=== PATIENT | male | born 1945 | race Two or more races ===

== ENCOUNTER 2018-07-10 18:41 | Emergency (ER) | payer OTHER, BC ==
[2018-07-10] MEDS: DILTIAZEM 25 MG INJ IV (19:16)
[2018-07-10 19:19] LABS: ADD MAN DIFF? NO
[2018-07-10 19:22] LABS: BASOPHILS % 0.3 % (0.0-2.0); EOSINOPHILS % 0.2 % (0.0-7.0); HEMATOCRIT 47.5 % (42.0-52.0); HEMOGLOBIN 15.5 g/dl (14.0-18.0); LYMPHOCYTES # 0.8 10^3/ul (0.8-2.9); LYMPHOCYTES % 8.7 % (15.0-51.0); MEAN CORPUSCULAR HGB CONC 32.6 g/dl (32.0-37.0); MEAN CORPUSCULAR VOLUME 85.7 fl (82.0-101.0); MEAN PLATELET VOLUME 10.5 fl (7.4-10.4); MONOCYTE # 0.9 10^3/ul (0.3-0.9); NEUTROPHIL # 7.5 10^3/ul (1.6-7.5); NEUTROPHILS % 80.4 % (39.0-77.0); PLATELET COUNT 169 10^3/UL (140-415); RED BLOOD COUNT 5.54 10^6/ul (4.70-6.10); RED CELL DISTRIBUTION WIDTH 13.8 % (11.5-14.5)
[2018-07-10 19:22] LABS: WHITE BLOOD COUNT 9.4 10^3/ul (4.8-10.8)
[2018-07-10] MEDS: FUROSEMIDE 40 MG INJ IV (19:29)
[2018-07-10] MEDS: MAGNESIUM SULFATE 2 GM/50 ML 50 ML IVPB (19:36)
[2018-07-10 19:39] LABS: INR 1.52; PROTIME 18.4 Sec (11.9-14.9); PT RATIO 1.4
[2018-07-10 19:41] LABS: PARTIAL THROMBOPLASTIN TIME 58.6 Sec (23.0-35.0)
[2018-07-10 19:42] LABS: ALBUMIN 4.6 g/dl (3.3-4.9); ALBUMIN/GLOBULIN RATIO 1.21; ALKALINE PHOSPHATASE 82 IU/L (42-121); ANION GAP 18 (5-13); ASPARTATE AMINO TRANSFERASE 27 IU/L (15-46); BILIRUBIN,INDIRECT 2.3 mg/dl (0-1.1); BILIRUBIN,TOTAL 2.3 mg/dl (0.2-1.3); BLOOD UREA NITROGEN 14 mg/dl (7-20); CALCIUM 9.8 mg/dl (8.4-10.2); CARBON DIOXIDE 24 mmol/L (21-31); CHLORIDE 97 mmol/L (97-110); CREATININE 0.91 mg/dl (0.61-1.24); GLUCOSE 123 mg/dl (70-220); POTASSIUM 3.5 mmol/L (3.5-5.1); SODIUM 139 mmol/L (135-144); TOTAL PROTEIN 8.4 g/dl (6.1-8.1)
[2018-07-10 19:44] LABS: ALANINE AMINOTRANSFERASE < 6 IU/L (13-69)
[2018-07-10 19:54] LABS: B-TYPE NATRIURETIC PEPTIDE 3440 PG/ML (0-125); TROPONIN-I < 0.012 ng/ml (0.000-0.120)
[2018-07-10 21:24] LABS: DIGOXIN < 0.4 ng/ml (1.0-2.0)
[2018-07-10] MEDS: DILTIAZEM-D5W 125MG/125ML DRIP 125 ML IV (22:02)
== END 2018-07-10 23:32 | disposition short-term general hospital (02) ==
LOC: E/R 18:41
DX: I48.91 Unspecified atrial fibrillation (principal); R40.2252 Coma scale, best verbal response, oriented, at arrival to emergency department; R40.2362 Coma scale, best motor response, obeys commands, at arrival to emergency department; R40.2142 Coma scale, eyes open, spontaneous, at arrival to emergency department; I11.0 Hypertensive heart disease with heart failure; I50.9 Heart failure, unspecified; Z79.82 Long term (current) use of aspirin; Z86.73 Personal history of transient ischemic attack (TIA), and cerebral infarction without residual deficits
CPT/HCPCS: 36415; 71045; 80053; 80162; 83880; 84484; 85025; 85610; 85730; 93005; 96365; 96375; 99291-25